=== PATIENT | male | born 1940 | race Caucasian/White ===

== ENCOUNTER 2018-06-09 13:41 | Emergency (ER) | payer OTHER ==
[2018-06-09] MEDS ORDERED: FLUT1DIS29 IH (13:49)
[2018-06-09] MEDS ORDERED: PRED-1 PO (13:56)
[2018-06-09] MEDS ORDERED: ABIR250T PO (14:00)
--- NOTE | 2018-06-09 14:25 | ER Report ---
History and Physical Time Seen By MD: 13:50 Hx. of Stated Complaint: LEFT FOOT PAIN, SWELLING, REDNESS HPI/ROS This is a 77-year-old male who presents to the emergency department with redness and swelling on the top of his right foot that started approximately 3 days ago. The patient is here in [place] on vacation. He is traveling from [place], and tonight they plan to start driving back to [place]. He said he noticed the swelling in his foot 2-3 days ago, and then the redness appeared. He came to the emergency department when the redness worsen today. He denies fever or chills. He does not have diabetes. He has no other symptoms of a systemic illness or complaints of pain. He has not had any surgery or other manipulation of his foot in the recent past Remainder of the 14 system rev: Yes Allergies: Coded Allergies: No Known Drug Allergies (Unverified , 06/09/18) Home Meds Active Scripts Sulfamethoxazole/Trimet 800-160 Mg Tab (BACTRIM DS TABLET) 1 Each Tablet, 1 TAB PO Q12H for 10 Days, #20 TAB Prov:NERY WILKS MD 06/09/18 Cephalexin 500 Mg Tab (KEFLEX 500 MG TAB) 500 Mg Tablet, 500 MG PO BID for 10 Days, #20 TAB Prov:NERY WILKS MD 06/09/18 Mupirocin Calcium (BACTROBAN) 15 Gm Cream..g., 1 CROW TP TID for 10 Days Prov:NERY WILKS MD 06/09/18 Reported Medications Abiraterone Acetate (ZYTIGA) 250 Mg Tablet, 1000 MG PO DAILY 06/09/18 Prednisone 10 Mg Tab (PREDNISONE 10 MG TAB) 10 Mg Tablet, 5 MG PO BID, #3 TAB 06/09/18 Fluticasone/Salmeterol (ADVAIR 500-50 DISKUS) 1 Each Disk.w.dev, 1 EACH IH BID 06/09/18 Reviewed Nurses Notes: Yes Hx Smoking: No Exposure to Second Hand Smoke?: No Hx Substance Use Disorder: No Hx Alcohol Use: No Family History of: HTN Constitutional Vital Sign - Last 24 Hours 06/09/18 13:48 Temp 98.7 Pulse 50 Resp 18 B/P (MAP) 196/77 Pulse Ox 80 O2 Delivery Room Air Physical Exam General Appearance: The patient is alert, has no immediate need for airway protection and no current signs of toxicity. Eyes: Pupils equal and round no injection. Respiratory: Chest is non tender, lungs are clear to auscultation. Cardiac: regular rate and rhythm Extremities have full range of motion and are non tender. No joint swelling or erythema of the joints. No pain with axial load of the foot and ankle Skin: There is a large area of erythema on the dorsal aspect of the right foot. There is no joint involvement. There is a central area that has some very mild fluctuance. No breaks in the skin. DIFFERENTIAL DIAGNOSIS: After history and physical exam differential diagnosis was considered for cellulitis, septic joint, MRSA, gout Medical Decision Making ED Course/Re-evaluation ED Course 77-year-old non-diabetic with a cellulitis of the right foot. The appearance of the cellulitis is worrisome for MRSA. I am going to start him on Bactrim and Keflex. I did repeat a skin marker around the area of erythema, and I counseled the patient and his family to observe for the redness spreading beyond the border. Gave him a dose of antibiotics in the emergency department, and I suggested that he take another dose tonight before going to bed. They're driving back to [facility]. I suggested that they drive to the [facility] in the event that the cellulitis worsens, he can go to the hospital in [place]. The small area of fluctuance in the center of the erythema was not significant enough to I&D. If the cellulitis does not worsen, he will continue with the antibiotics and follow-up with his primary care physician back in [place]. Decision to Disposition Date: Jun 09, 2018 Decision to Disposition Time: 14:39 Depart Departure Latest Vital Signs Vital Signs Date Time Temp Pulse Resp B/P (MAP) Pulse Ox O2 Delivery O2 Flow Rate FiO2 06/09/18 13:48 98.7 50 18 196/77 80 Room Air Impression: Primary Impression: Cellulitis Condition: Improved Disposition: HOME OR SELF-CARE New Scripts Sulfamethoxazole/Trimet 800-160 Mg Tab (BACTRIM DS TABLET) 1 Each Tablet 1 TAB PO Q12H for 10 Days, #20 TAB Prov: NERY WILKS MD 06/09/18 Cephalexin 500 Mg Tab (KEFLEX 500 MG TAB) 500 Mg Tablet 500 MG PO BID for 10 Days, #20 TAB Prov: NERY WILKS MD 06/09/18 Mupirocin Calcium (BACTROBAN) 15 Gm Cream..g. 1 CROW TP TID for 10 Days Prov: NERY WILKS MD 06/09/18 Patient Instructions: Cellulitis (ED) Problem Qualifiers Primary Impression: Cellulitis Site of cellulitis: extremity Site of cellulitis of extremity: lower extremity Laterality: right Qualified Codes: L03.115 - Cellulitis of right lower limb NERY WILKS MD Jun 09, 2018 14:25
[2018-06-09] MEDS ORDERED: CEPHALEXIN MONO 500 MG CAP PO ONE (14:35)
[2018-06-09] MEDS ORDERED: TRIMETH/SULFA DS 160-800MG TAB PO ONE (14:35)
[2018-06-09] MEDS ORDERED: CEPH500T7 PO (14:41)
[2018-06-09] MEDS ORDERED: MUPI15CR10 TP (14:41)
[2018-06-09] MEDS ORDERED: SULF-198 PO (14:41)
[2018-06-09 14:50] VITALS: BP 143/99
== END 2018-06-09 14:52 | disposition home or self-care (01) ==
LOC: ER 13:55
DX: L03.115 Cellulitis of right lower limb (principal)
CPT/HCPCS: 99283